=== PATIENT | female | born 1945 | race Caucasian/White ===

== ENCOUNTER 2017-03-03 10:09 | Emergency (ER) | payer MEDICARE, BC ==
[2017-03-03] MEDS ORDERED: NALBUPHINE HCL 20 MG/ML AMPUL IM ONE (10:36)
[2017-03-03] MEDS ORDERED: NALBUPHINE HCL 20 MG/ML AMPUL ONE (10:45)
--- NOTE | 2017-03-03 10:51 | ERNOTE ---
Lower Extremity HPI - Narrative Date of Service: 03/03/17 - General Lower Extremities Pain: foot: left Time Seen by Provider: 03/03/17 10:31 Source: patient Exam Limitations: no limitations - Immun/Allergies/Home Medications Allergies/Adverse Reactions: Allergies Allergy/AdvReac Type Severity Reaction Status Date / Time codeine AdvReac Intermediate restless, Verified 03/03/17 10:47 nausea, lightheaded Home Medications: HOME MEDICATIONS Allopurinol [Zyloprim] 100 mg PO DAILY #30 tablet 03/03/17 [Last Taken Unknown] Aspirin [Valerie Chewable] 81 mg PO DAILY 03/03/17 [Last Taken 03/03/17] Bumetanide 2 mg PO DAILY 03/03/17 [Last Taken 03/02/17] Insulin Aspart [Novolog Flexpen] 16 unit SQ AC 03/03/17 [Last Taken 03/02/17] Insulin Detemir [Levemir Flextouch] 54 unit SQ HS 03/03/17 [Last Taken 03/02/17] Magnesium Oxide [Mag-Ox 400] 250 mg PO HS 03/03/17 [Last Taken 03/02/17] Montelukast Sodium [Singulair] 10 mg PO HS 03/03/17 [Last Taken 03/02/17] Omeprazole 40 mg PO DAILY 03/03/17 [Last Taken 03/03/17] Pravastatin Sodium 80 mg PO HS 03/03/17 [Last Taken 03/02/17] Pregabalin [Lyrica] 150 mg PO BID 03/03/17 [Last Taken 03/03/17] - History of Present Illness Narrative: Pt. comes in with c/o L foot pain for two days that is exacerbated by movment and started in the middle of the night with unknown injury. Pt. states that she has a hx of Osteoporosis and that she thinks she may have bumped it and broken it. Pt. states that she has a ahx of renal failure and has also had swelling due to this as well. Pt. denies any numbness, tingling, fever, increased swelling, SOB, CP, NVD, alleviating factors or prehospital treatment. Pt. takes tramadol for her chronic pain and denies relief with this. Review of Systems - Review of Systems Constitutional: Present: no symptoms reported. Absent: recent illness, fever, chills, weakness, fatigue, malaise EYE: Present: no symptoms reported ENT: Present: no symptoms reported Respiratory: Present: no symptoms reported. Absent: shortness of breath, cough , wheezing Cardiology: Present: no symptoms reported. Absent: chest pain, palpitations, edema Gastrointestinal/Abdominal: Present: no symptoms reported. Absent: nausea, vomiting, diarrhea, constipation, abdominal pain, eating less Genitourinary: Present: no symptoms reported. Absent: frequency, decreased urinary output Musculoskeletal: Present: joint pain - L foot. Absent: back pain Skin: Present: no symptoms reported. Absent: rash, change in hair/nails Neurological: Present: no symptoms reported. Absent: headache, dizziness/light- headedness, numbness, tingling Endocrine: Present: no symptoms reported. Absent: intolerance to cold, increased hunger Hematologic/Lymphatic: Present: no symptoms reported All Other Systems: All systems neg except as marked - Patient's Past Medical History Patient History - Medical: Chronic Pain, Osteoporosis, Renal Disease Patient History - Cardiac/Respiratory: No pertinent hx - Family History Father Family History - Medical: Renal Disease, Other Mother Family History - Medical: No pertinent hx Family History - Cardiac/Respiratory: Other Physical Exam - Physical Exam General Appearance: Present: wd/wn, alert, no apparent distress Head Exam: Present: normal inspection, no evidence of injury Eye Exam: Normal inspection: bilateral Respiratory: Present: no respiratory distress, normal breath sounds, no accessory muscle use, chest nontender, lungs clear Cardiovascular/Chest: Present: regular rate, rhythm, no murmur, normal peripheral pulses Gastrointestinal/Abdominal: Present: normal bowel sounds, nontender Back Exam: Present: normal inspection, no CVA tenderness Extremity Exam: Present: normal range of motion, bony tenderness - L L ateral and dorsal foot, joint swelling - L distal lateral foot Neurological Exam: Present: alert, oriented, normal mood/affect, no motor/ sensory deficits Skin Exam: Present: warm/dry, other - redness and ecchymosis L dorsal lateral foot ED Progress - Date and Time Seen: Date and Time: 03/03/17 11:22 As pt. has elevated Uric acid and pt. states that her blood glucose has been higher lately but her Blood sugar often ranges higher feel that pt. has gout and needs to be on allupurinol vs prednisone as prednisone will increase her blood sugars. - Results and Orders Patient's Lab Results:: I have reviewed the patient's lab results. Results and Orders: Abnormal Lab Results 03/03/17 03/03/17 Range/Units 10:46 10:46 Hgb 12.1 L (12.5-16.0) gm/dL Hct 36.1 L (37.0-47.0) % RDW 14.6 H (11.5-14.0) % MPV 11.9 H (6.0-9.5) fl Lymphocytes % 16.7 L (20-51) % Lymphocytes # 1.2 L (1.5-3.5) k/mm3 Chloride 93 L (97-106) mmol/L BUN 28 H (3-23) mg/dL Creatinine 1.78 H (0.4-1.4) mg/dL Est GFR (Non-Af Amer) 30 L (60-130) mL/min Random Glucose 347 H (70-110) mg/dL Uric Acid 10.6 H (2.6-7.2) mg/dL Albumin 3.3 L (3.4-5.0) gm/dl - Vital Signs Patient's Vital Signs:: I have reviewed the patient's vital signs. - X-Ray X-Ray #1 X-Ray: foot Interpretation: Reviewed by me X-ray Comments: no obvious fracture lucency but spurring of the calcaneous and exostoses noted as well as degenerative changes. Departure Clinical Impression: Gout Qualifiers: Gout site: foot Gout etiology: due to renal impairment Chronicity: acute Laterality: left Qualified Code(s): M10.372 - Gout due to renal impairment, left ankle and foot - Departure Disposition: Home self-care Condition: Good Instructions: Gout, Pacy-co-Ecnb, Uric Acid Nephropathy Additional Instructions: Please follow up with primary provider to discuss further control of your diabetes and your kidney doctor to discuss kidney disease and gout. Prescriptions: Allopurinol [Zyloprim] 100 mg PO DAILY #30 tablet
[2017-03-03 10:55] LABS: Hematocrit 36.1 % (37.0-47.0); Hemoglobin 12.1 gm/dL (12.5-16.0); Mean Cell Volume 84.7 fl (78-100); Mean Corpuscular Hemoglobin 28.4 pg (27-31); Mean Corpuscular Hgb Conc 33.5 g/dl (32-36); Mean Platelet Volume 11.9 fl (6.0-9.5); Neutrophil # 5.3 K/mm3 (1.3-6.0); Neutrophil % 72.2 % (42-75.0); Platelet Count 236 K/mm3 (150-450); Red Blood Count 4.26 M/mm3 (4.2-5.4); Red Cell Distribution Width 14.6 % (11.5-14.0); White Blood Count 7.4 K/mm3 (4.0-10.5)
[2017-03-03 11:11] LABS: Albumin * 3.3 gm/dl (3.4-5.0); BUN/Creatinine Ratio 15.7 (9.0-21.6); Bilirubin, Total 0.5 mg/dL (0.0-1.1); Ca. Corrected For Albumin 10.1 mg/dL (8.4-10.2); Calcium * 9.9 mg/dL (7.9-10.9); Potassium 3.5 mmol/L (3.4-4.6); Total Protein 7.2 gm/dL (6.2-8.2); Uric Acid 10.6 mg/dL (2.6-7.2)
[2017-03-03 11:14] VITALS: BP 150/69
[2017-03-03 11:16] LABS: Anion Gap 13.6 mmol/L (6.8-13.8); Carbon Dioxide 28.9 mmol/L (24-32.6)
[2017-03-03 11:34] LABS: Hemoglobin A1C 10.6 % (4.00-6.0)
== END 2017-03-03 11:33 | disposition home or self-care (01) ==
LOC: ER 10:09
DX: N28.9 Disorder of kidney and ureter, unspecified (principal); M10.372 Gout due to renal impairment, left ankle and foot